=== PATIENT | female | born 1960 | race African-American/Black ===

== ENCOUNTER 2024-11-29 11:58 | Inpatient (IN) | payer MEDICAID ==
[2024-11-29] VITALS (29 sets, daily range): BP systolic 94–114; BP diastolic 72–84; PULSE 65–115; RESP 19–38; TEMP 36.1956–36.2; O2SAT 97–100
[~2024-11-29] VITALS: Ht 153 cm; Wt 50.9 kg
[2024-11-29] MEDS: SODIUM CHLORIDE 0.9% 1,000 ML IV ONE (12:21)
[2024-11-29] MEDS: METHYLPREDNISOLONE SOD SUCC 125MG/2ML (ACT-O-VIAL) IV ONE (12:30)
[2024-11-29] MEDS: IPRATROPIUM BROMIDE (0.02%) 0.5MG/2.5ML NEB HHN SCH (12:31)
[2024-11-29] MEDS: ALBUTEROL (0.083%) 2.5MG/3ML NEB HHN SCH (12:37)
[2024-11-29] MEDS: ALBUTEROL (0.083%) 2.5MG/3ML NEB HHN ONE (12:46)
[2024-11-29 13:01] LABS: BASOPHILS % 0.6 % (0.0-2.0); EOSINOPHILS % 11.2 % (0.0-5.0); HEMATOCRIT. 44.4 % (36.0-48.0); HEMOGLOBIN. 14.2 g/dL (12.0-16.0); LYMPHOCYTES % 23.9 % (20.0-50.0); MEAN PLATELET VOLUME 10.0 fl (7.4-10.4); MONOCYTES % 6.5 % (2.0-8.0); NEUTROPHILS % 57.8 % (40.0-76.0); PLATELET 275 x1000/uL (130-400); RED BLOOD CELL COUNT 5.15 mill/uL (4.2-5.4); RED CELL DISTRIBUTION WIDTH 14.2 % (11.6-14.6)
[2024-11-29] MEDS: SODIUM CHLORIDE 0.9% 500 ML IV ONE (13:08)
[2024-11-29] MEDS: AZITHROMYCIN 500MG/250ML 250 ML IV ONE (13:09)
[2024-11-29] MEDS: CEFTRIAXONE 1GM/50ML 50 ML IV ONE (13:09)
[2024-11-29 13:14] LABS: INR 1.1
[2024-11-29 13:19] LABS: CREATININE 1.1 mg/dL (0.6-1.0); UREA NITROGEN BLOOD 18 mg/dL (9-23)
[2024-11-29] MEDS: MAGNESIUM 2 G PREMIX 50 ML IV ONE (13:23)
[2024-11-29 13:56] LABS: BG BASE EXCESS -4.1 mmol/L (-2.0-3.0); BG CARBOXYHEMOGLOBIN 0.6 % (0.5-1.5); BG DEOXYHEMOGLOBIN 0.5 % (0.0-5.0); BG FRACTION INSPIRED OXYGEN 40; BG HCO3 ACT 30.9 mmol/L (21.0-28.0); BG METHEMOGLOBIN 0.1 % (0.5-1.5); BG OXYGEN SATURATION 99.5 % (94.0-98.0); BG OXYHEMOGLOBIN 98.8 % (94.0-98.0); BG PCO2 131.3 mmHg (32.0-45.0); BG PH 6.990 (7.350-7.450); BG PO2 263.0 mmHg (83.0-108.0); BG SAMPLE SITE RIGHT RADIAL; BG TOTAL HEMOGLOBIN 13.7 g/dL (12.0-16.0); BG VENT MODE MASK - BIPAP; BG VENT RATE 36.0 set
[2024-11-29] MEDS: ETOMIDATE 2MG/ML 10ML VIAL IV ONE (14:15)
[2024-11-29] MEDS ORDERED: FENTANYL 2500MCG/250ML PMX 250 ML IV SCH (14:15)
[2024-11-29] MEDS: SUCCINYLCHOLINE CHLORIDE 200MG/10ML IV ONE (14:15)
[2024-11-29] MEDS: PROPOFOL 10MG/ML 100ML 100 ML IV SCH (14:29)
[2024-11-29 15:02] LABS: TROPONIN I HIGH SENSITIVITY 88 ng/L (3.0-34)
[2024-11-29] MEDS: KCL 20MEQ/100ML PREMIX 100 ML IV SCH (15:45)
[2024-11-29] MEDS: FENTANYL CITRATE 2,500 MCG in SODIUM CHLORIDE 0.9% 200 ML IV PRN (15:49)
[2024-11-29 16:51] LABS: BG BASE EXCESS -5.1 mmol/L (-2.0-3.0); BG CARBOXYHEMOGLOBIN 1.2 % (0.5-1.5); BG DEOXYHEMOGLOBIN 1.0 % (0.0-5.0); BG FRACTION INSPIRED OXYGEN 40; BG HCO3 ACT 23.4 mmol/L (21.0-28.0); BG METHEMOGLOBIN 0.2 % (0.5-1.5); BG OXYGEN SATURATION 99.0 % (94.0-98.0); BG OXYHEMOGLOBIN 97.6 % (94.0-98.0); BG PCO2 59.1 mmHg (32.0-45.0); BG PEEP (cmH2O) 5.0 cmH2O; BG PH 7.216 (7.350-7.450); BG PO2 146.9 mmHg (83.0-108.0); BG SAMPLE SITE RIGHT BRACHIAL; BG TIDAL VOLUME(mL) 450.0 mL; BG TOTAL HEMOGLOBIN 13.4 g/dL (12.0-16.0); BG VENT MODE VENT - AC; BG VENT RATE 20.0 set
[2024-11-29] MEDS ORDERED: IPRATROPIUM/ALBUTEROL 0.5-3(2.5)MG/3ML NEB HHN PRN ×2 (18:30→20:15)
[2024-11-29] MEDS ORDERED: METHYLPREDNISOLONE 40MG/ML INJ IV ONE (20:15)
[2024-11-29] MEDS ORDERED: DEXTROSE 50% WATER 50ML SYRINGE IV PRN (21:00)
[2024-11-29] MEDS: INSULIN LISPRO 100 UNITS/ML SUBCUT SCH (21:00)
[2024-11-29] MEDS ORDERED: BUDESONIDE 0.5MG/2ML NEB HHN SCH (21:00)
[2024-11-29] MEDS: FAMOTIDINE 20MG/2ML VIAL IV SCH (21:37)
[2024-11-29] MEDS: BLOOD SUGAR DIAGNOSTIC STRIP TEST SCH (21:37)
[2024-11-29] MEDS ORDERED: METHYLPREDNISOLONE SOD SUCC 125MG/2ML (ACT-O-VIAL) IV SCH (22:00)
[2024-11-29] MEDS: DEXT 5%/0.45% NACL KCL 10MEQ/L 1,000 ML IV SCH (23:57)
[2024-11-29 23:58] LABS: BASOPHILS % 0.3 % (0.0-2.0); EOSINOPHILS % 1.3 % (0.0-5.0); HEMATOCRIT. 39.0 % (36.0-48.0); HEMOGLOBIN. 12.4 g/dL (12.0-16.0); LYMPHOCYTES % 8.7 % (20.0-50.0); MEAN PLATELET VOLUME 9.8 fl (7.4-10.4); MONOCYTES % 8.4 % (2.0-8.0); NEUTROPHILS % 81.3 % (40.0-76.0); PLATELET 203 x1000/uL (130-400); RED BLOOD CELL COUNT 4.61 mill/uL (4.2-5.4); RED CELL DISTRIBUTION WIDTH 14.2 % (11.6-14.6)
[2024-11-30] VITALS (93 sets, daily range): BP systolic 90–139; BP diastolic 67–92; PULSE 48–76; RESP 13–27; TEMP 36.2–36.8; O2SAT 99–100
[2024-11-30 00:11] LABS: CREATININE 0.8 mg/dL (0.6-1.0); UREA NITROGEN BLOOD 22 mg/dL (9-23)
[2024-11-30] MEDS ORDERED: FENTANYL 2500MCG/250ML PMX 250 ML IV PRN (00:30)
[2024-11-30] MEDS: IPRATROPIUM/ALBUTEROL 0.5-3(2.5)MG/3ML NEB HHN SCH (00:31)
[2024-11-30] MEDS: METHYLPREDNISOLONE SOD SUCC 125MG/2ML (ACT-O-VIAL) IV SCH (00:33)
[2024-11-30] MEDS ORDERED: FENTANYL CITRATE 2,500 MCG in SODIUM CHLORIDE 0.9% 200 ML IV PRN (00:45)
[2024-11-30] MEDS: PROPOFOL 10MG/ML 100ML 100 ML IV PRN (01:40)
[2024-11-30 05:45] LABS: HEMATOCRIT. 38.5 % (36.0-48.0); HEMOGLOBIN. 12.3 g/dL (12.0-16.0); MEAN PLATELET VOLUME 10.5 fl (7.4-10.4); PLATELET 199 x1000/uL (130-400); RED BLOOD CELL COUNT 4.53 mill/uL (4.2-5.4); RED CELL DISTRIBUTION WIDTH 14.1 % (11.6-14.6)
[2024-11-30 05:51] LABS: CREATININE 0.8 mg/dL (0.6-1.0); UREA NITROGEN BLOOD 24 mg/dL (9-23)
[2024-11-30 07:40] LABS: INFLUENZA TYPE A Presumptive Negative (Pres. Neg.)
[2024-11-30 07:42] LABS: INFLUENZA TYPE B Presumptive Negative (Pres. Neg.); RESPIRATORY SYNCYTIAL VIRUS Not Detected (Not Detectd)
[2024-11-30 08:10] LABS: CLARITY URINE CLOUDY (CLEAR); COLOR URINE DARK YELLOW (YELLOW); GLUCOSE URINE NEGATIVE (NEGATIVE); KETONES URINE NEGATIVE (NEGATIVE); LEUKOCYTE ESTERASE URINE NEGATIVE (NEGATIVE); NITRITE URINE NEGATIVE (NEGATIVE); OCCULT BLOOD URINE NEGATIVE (NEGATIVE); PH URINE 5.5 (4.5-8.0); PROTEIN URINE 2+ (NEGATIVE); SPECIFIC GRAVITY URINE 1.019 (1.005-1.030); UROBILINOGEN URINE 1.0 E.U./dL (0.2-1.0)
[2024-11-30] MEDS: ENOXAPARIN 30MG/0.3ML SYR SUBCUT SCH (08:33)
[2024-11-30 08:45] LABS: *AMPHETAMINES SCREEN URINE NEGATIVE (NEGATIVE); *BARBITURATES SCREEN URINE NEGATIVE (NEGATIVE); *BENZODIAZEPINES SCREEN URINE NEGATIVE (NEGATIVE); *COCAINE SCREEN URINE NEGATIVE (NEGATIVE); METHADONE URINE SCREEN NEGATIVE (NEGATIVE)
[2024-11-30 08:46] LABS: CANNABINOID URINE SCREEN NEGATIVE (NEGATIVE); ECSTASY MDMA SCREEN URINE NEGATIVE (NEGATIVE); OPIATES URINE SCREEN NEGATIVE (NEGATIVE); PHENCYCLIDINE URINE SCREEN NEGATIVE (NEGATIVE)
[2024-11-30 08:52] LABS: COARSE GRANULAR CASTS URINE 0-5 /lpf; FINE GRANULAR CASTS URINE 0-5 /lpf
[2024-11-30 08:53] LABS: HYALINE CASTS URINE 20-30 /lpf
[2024-11-30 08:54] LABS: WHITE BLOOD CELL CASTS URINE 0-5 /lpf
[2024-11-30 08:54] LABS: BG BASE EXCESS -0.9 mmol/L (-2.0-3.0); BG CARBOXYHEMOGLOBIN 1.2 % (0.5-1.5); BG DEOXYHEMOGLOBIN 0.4 % (0.0-5.0); BG FRACTION INSPIRED OXYGEN 40; BG HCO3 ACT 23.2 mmol/L (21.0-28.0); BG METHEMOGLOBIN 0.1 % (0.5-1.5); BG OXYGEN SATURATION 99.6 % (94.0-98.0); BG OXYHEMOGLOBIN 98.3 % (94.0-98.0); BG PCO2 37.0 mmHg (32.0-45.0); BG PEEP (cmH2O) 5.0 cmH2O; BG PH 7.416 (7.350-7.450); BG PO2 160.8 mmHg (83.0-108.0); BG SAMPLE SITE RIGHT RADIAL; BG TIDAL VOLUME(mL) 425.0 mL; BG TOTAL HEMOGLOBIN 14.3 g/dL (12.0-16.0); BG VENT MODE VENT - AC; BG VENT RATE 24.0 set
[2024-11-30 08:56] LABS: RBC URINE NONE SEEN /hpf (0-2)
[2024-11-30 08:57] LABS: BACTERIA URINE TRACE; SQUAMOUS EPITHELIAL CELL URINE RARE /lpf (RARE/1+)
[2024-11-30] MEDS ORDERED: PANTOPRAZOLE SODIUM 40 MG/VIAL IV SCH ×2 (09:00→10:15)
[2024-11-30] MEDS ORDERED: AZITHROMYCIN 500MG/250ML 250 ML IV SCH (13:30)
[2024-11-30] MEDS: CEFTRIAXONE 1GM/50ML 50 ML IV SCH (13:54)
[2024-11-30] MEDS: AZITHROMYCIN 500MG/250ML 250 ML IV SCH (13:56)
[2024-11-30] MEDS: MONTELUKAST SODIUM 10MG TABLET PO SCH (17:52)
[2024-12-01] VITALS (111 sets, daily range): BP systolic 116–249; BP diastolic 70–154; PULSE 48–126; RESP 8–32; TEMP 36.6; O2SAT 95–100
[2024-12-01 05:53] LABS: CREATININE 0.8 mg/dL (0.6-1.0); UREA NITROGEN BLOOD 15 mg/dL (9-23)
[2024-12-01] MEDS: AMLODIPINE 10MG TABLET PO SCH (09:11)
[2024-12-01 09:53] LABS: HEMATOCRIT. 42.8 % (36.0-48.0); HEMOGLOBIN. 13.5 g/dL (12.0-16.0); MEAN PLATELET VOLUME 9.8 fl (7.4-10.4); PLATELET 218 x1000/uL (130-400); RED BLOOD CELL COUNT 5.01 mill/uL (4.2-5.4); RED CELL DISTRIBUTION WIDTH 14.6 % (11.6-14.6)
[2024-12-01 13:57] LABS: BAND% 4.0 % (1.0-6.0); LYMPHOCYTES % MANUAL 3.0 % (20.0-60.0); MONOCYTES % MANUAL 2.0 % (2.0-8.0); NEUTROPHILS % MANUAL 91.0 % (45.0-75.0); PLATELET ESTIMATE NORMAL
[2024-12-01] MEDS: IPRATROPIUM BROMIDE (0.02%) 0.5MG/2.5ML NEB HHN SCH (14:21)
[2024-12-01] MEDS: DEXT IV SCH (14:23)
[2024-12-01] MEDS: POTASSIUM CHLORIDE IV SCH (14:23)
[2024-12-01] MEDS: NACL IV SCH (14:23)
[2024-12-01 15:55] LABS: LYMPHOCYTES % MANUAL 7.0 % (20.0-60.0); MONOCYTES % MANUAL 6.0 % (2.0-8.0); NEUTROPHILS % MANUAL 87.0 % (45.0-75.0); PLATELET ESTIMATE NORMAL
[2024-12-01] MEDS ORDERED: PROPOFOL 10MG/ML 100ML 100 ML IV PRN (18:45)
[2024-12-01] MEDS: FENTANYL 2500MCG/250ML PMX 250 ML IV PRN (19:31)
[2024-12-02] VITALS (104 sets, daily range): BP systolic 107–160; BP diastolic 69–101; PULSE 52–103; RESP 11–30; TEMP 36.2–36.7; O2SAT 92–100
[2024-12-02 06:47] LABS: CREATININE 0.8 mg/dL (0.6-1.0); TRIGLYCERIDE 50 mg/dL (0-150)
[2024-12-02 06:48] LABS: UREA NITROGEN BLOOD 17 mg/dL (9-23)
[2024-12-02 07:31] LABS: HEMATOCRIT. 38.1 % (36.0-48.0); HEMOGLOBIN. 12.3 g/dL (12.0-16.0); MEAN PLATELET VOLUME 10.7 fl (7.4-10.4); PLATELET 226 x1000/uL (130-400); RED BLOOD CELL COUNT 4.54 mill/uL (4.2-5.4); RED CELL DISTRIBUTION WIDTH 14.7 % (11.6-14.6)
[2024-12-02 09:05] LABS: BG BASE EXCESS 0.9 mmol/L (-2.0-3.0); BG CARBOXYHEMOGLOBIN 0.5 % (0.5-1.5); BG DEOXYHEMOGLOBIN 2.7 % (0.0-5.0); BG FRACTION INSPIRED OXYGEN 30; BG HCO3 ACT 24.4 mmol/L (21.0-28.0); BG METHEMOGLOBIN 0.3 % (0.5-1.5); BG OXYGEN SATURATION 97.3 % (94.0-98.0); BG OXYHEMOGLOBIN 96.5 % (94.0-98.0); BG PCO2 35.9 mmHg (32.0-45.0); BG PEEP (cmH2O) 5.0 cmH2O; BG PH 7.451 (7.350-7.450); BG PO2 91.1 mmHg (83.0-108.0); BG SAMPLE SITE LEFT RADIAL; BG TIDAL VOLUME(mL) 425.0 mL; BG TOTAL HEMOGLOBIN 14.0 g/dL (12.0-16.0); BG VENT MODE VENT - SIMV; BG VENT RATE 24.0 set
[2024-12-02] MEDS: DOCUSATE SODIUM SUGAR FREE 100MG/10ML UDC NG SCH (09:07)
[2024-12-02 10:56] LABS: BAND% 4.0 % (1.0-6.0); LYMPHOCYTES % MANUAL 5.0 % (20.0-60.0); MONOCYTES % MANUAL 1.0 % (2.0-8.0); NEUTROPHILS % MANUAL 90.0 % (45.0-75.0)
[2024-12-02 10:57] LABS: PLATELET ESTIMATE NORMAL
[2024-12-02] MEDS: LACTULOSE 20G/30ML UDC PO PRN (17:56)
[2024-12-03] VITALS (42 sets, daily range): BP systolic 125–160; BP diastolic 83–99; PULSE 66–82; RESP 18–35; TEMP 36.1–36.7; O2SAT 93–100
[2024-12-03] MEDS: DEXT 5%/0.45% NACL KCL 10MEQ/L 1,000 ML IV SCH (05:15)
[2024-12-03 07:49] LABS: CREATININE 0.7 mg/dL (0.6-1.0); UREA NITROGEN BLOOD 12 mg/dL (9-23)
[2024-12-03 07:54] LABS: HEMATOCRIT. 41.5 % (36.0-48.0); HEMOGLOBIN. 13.0 g/dL (12.0-16.0); MEAN PLATELET VOLUME 10.6 fl (7.4-10.4); PLATELET 231 x1000/uL (130-400); RED BLOOD CELL COUNT 4.84 mill/uL (4.2-5.4); RED CELL DISTRIBUTION WIDTH 14.4 % (11.6-14.6)
[2024-12-03] MEDS ORDERED: ACETAMINOPHEN 650MG/20.3ML UDC GT PRN (08:30)
[2024-12-03 17:22] LABS: LYMPHOCYTES % MANUAL 5.0 % (20.0-60.0); MONOCYTES % MANUAL 4.0 % (2.0-8.0); NEUTROPHILS % MANUAL 91.0 % (45.0-75.0); PLATELET ESTIMATE NORMAL
[2024-12-03] MEDS: METHYLPREDNISOLONE SOD SUCC 125MG/2ML (ACT-O-VIAL) IV SCH (20:47)
[2024-12-04] VITALS (10 sets, daily range): BP systolic 141–158; BP diastolic 86–99; PULSE 68–110; RESP 16–36; TEMP 36.3–37.4; O2SAT 90–98
[2024-12-04] MEDS: HYDRALAZINE 20MG/ML VIAL IV PRN (10:26)
[2024-12-04] MEDS ORDERED: P20 MT (10:45)
[2024-12-04] MEDS ORDERED: ALBU18HF2 IH (10:45)
[2024-12-04] MEDS ORDERED: FLUT1DIS3 INH (10:45)
[2024-12-04] MEDS ORDERED: IPRATROPIUM/ALBUTEROL 0.5-3(2.5)MG/3ML NEB HHN PRN (15:15)
[2024-12-04] MEDS: PREDNISONE 20MG TABLET PO SCH (21:11)
[2024-12-05] VITALS (7 sets, daily range): BP systolic 125–159; BP diastolic 76–107; PULSE 68–93; RESP 22–33; TEMP 36.1–36.8; O2SAT 92–97
[2024-12-05] MEDS ORDERED: IPRA3AMP9 NEB (11:44)
[2024-12-05] MEDS ORDERED: AMLO10TA80 PO (11:44)
== END 2024-12-05 17:41 | disposition home or self-care (01) | DRG 141 ==
LOC: ER 12:36 → MICUNO 14:30 → ENRESERV 17:45 → 5EST 12-03 14:32
PROVIDERS: ADMIT Internal Medicine; ATTEND Internal Medicine
PROC: 5A1945Z Respiratory Ventilation, 24-96 Consecutive Hours (ICD-10-PCS; principal; 2024-11-29)
PROC: 0BH17EZ Insertion of Endotracheal Airway into Trachea, Via Natural or Artificial Opening (ICD-10-PCS; 2024-11-29)
PROC: 5A1935Z Respiratory Ventilation, Less than 24 Consecutive Hours (ICD-10-PCS; 2024-11-29)
PROC: 5A09357 Assistance with Respiratory Ventilation, Less than 24 Consecutive Hours, Continuous Positive Airway Pressure (ICD-10-PCS; 2024-11-29)
DX: J45.901 Unspecified asthma with (acute) exacerbation (principal); J96.02 Acute respiratory failure with hypercapnia; D72.10 Eosinophilia, unspecified; T38.0X5A Adverse effect of glucocorticoids and synthetic analogues, initial encounter; I10 Essential (primary) hypertension; R00.1 Bradycardia, unspecified; R73.9 Hyperglycemia, unspecified; Z20.822 Contact with and (suspected) exposure to COVID-19; Z88.0 Allergy status to penicillin; Z88.6 Allergy status to analgesic agent
CPT/HCPCS: 31500; 31720; 36415; 36600; 71045; 80048; 80305; 81003; 82375; 82805; 82962; 83036; 83605; 83735; 83880; 84145; 84478; 84484; 85025; 86850; 86900; 87070; 87420; 87426; 87804; 93005; 94002; 94003; 94070; 94640; 94660; 94664; 97116; 97162; 98960; 99285; A4606; A6261; J0360; J0456; J0696; J1308; J1650; J2704; J2919; J3010; J3475; J3480; J7030; J7040; J7512; A5200